=== PATIENT | female | born 1995 | race Caucasian/White ===

== ENCOUNTER 2019-02-12 15:26 | Emergency (ER) | payer MEDICAID, SELFPAY ==
[2019-02-12 15:26] VITALS: BP 147/89; PULSE 104; RESP 18; TEMP 36.6; O2SAT 98; BMI 25.0
--- NOTE | 2019-02-12 15:47 | RAD_ITS ---
STUDY: X-RAY CHEST REASON FOR EXAM: Female, 24 years old. Chest pain TECHNIQUE: PA and lateral views of the chest. COMPARISON: None. FINDINGS: quality assurance monitor chassis leads are present. The lungs are clear and expanded. There is no demonstrated pleural abnormality. Normal size heart. Normal mediastinum and jered. Normal visualized pulmonary arteries. Normal visualized aortic arch and descending thoracic aorta. Normal visualized thoracic spine. Normal visualized ribs, clavicles, and shoulders. There is no demonstrated abnormality of the visualized soft tissue structures of the upper abdomen. RAD/Chest PA and Lateral IMPRESSION: Normal x-ray examination of the chest. Electronically Signed: Tony Jasso MD at 17:03 EDT , Service support ,
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
[2019-02-12 16:10] VITALS: BP 119/66; PULSE 75; RESP 19; O2SAT 98
[2019-02-12 16:36] LABS: Absolute Lymphocyte Count 1.61 X10^3/uL (0.83-4.51); Absolute Neutrophil Count 7.1 X10^3/uL (2.0-7.7); Basophil# 0.04 X10^3/uL; Basophil% 0.4 % (0-1); Eosinophil# 0.15 X10^3/uL; Eosinophils% 1.5 % (0-5); Hematocrit 42.4 % (37-47); Hemoglobin 14.5 g/dL (12.0-15.0); Lymphocyte # 1.61 X10^3/ul (4.0); Lymphocyte % 16.6 % (19-41); Mean Corp Hgb Conc 34.2 g/dL (32-36); Mean Corpuscular Hgb 30.4 pg (27.0-32.0); Mean Corpuscular Volume 88.9 fL (81-99); Mean Platelet Vol. 11.2 fl (6.2-12.0); Monocyte# 0.79 X10^3/uL; Monocyte% 8.2 % (0-10); NRBC Flagged by Analyzer 0 % (0-5); Neutrophil # 7.05 X10^3/uL (2.7-7.7); Neutrophil % 72.9 % (47-70); Platelet Count 276 K/mm3 (150-450); RBC Distribution Width CV 12.6 % (11.6-14.6); RBC Distribution Width SD 41.5 fl (35.1-43.9); Red Blood Count 4.77 M/mm3 (4.2-5.4); White Blood Count 9.7 K/mm3 (4.4-11.0)
[2019-02-12 16:49] LABS: Anion Gap 8 (5-15); BUN 6 mg/dL (7-18); BUN/Creat Ratio 7.9 RATIO (10-20); Chloride 108 mmol/L (98-107); Creatinine, Serum 0.76 mg/dL (0.55-1.02); EST Glomerular Filtration Rate 100 mL/min (>60); Est Glom Filt Rate - Afr Amer 121 mL/min (>60); Estimated Creatinine Clearance 103.59 ml/min; Glucose 95 mg/dL (74-106); Potassium 3.8 mmol/L (3.5-5.1); Sodium Level 142 mmol/L (136-145)
[2019-02-12 17:00] VITALS: BP 108/61; PULSE 64; RESP 16; O2SAT 98
[2019-02-12 17:21] LABS: Internal QC Validated? YES +Cl - CLEAR BKGD; Pregnancy, Serum, hCG Quali. NEGATIVE Negative
--- NOTE | 2019-02-12 17:59 | EKG12_ITS ---
Test Reason : CP Blood Pressure : / mmHG Vent. Rate : 076 BPM Atrial Rate : 076 BPM P-R Int : 132 ms QRS Dur : 078 ms QT Int : 358 ms P-R-T Axes : 017 048 018 degrees QTc Int : 402 ms Normal sinus rhythm Normal ECG Confirmed by SOHAIL PEREIRA, HANS ([id number]), slot editor KARAN COFFEY ([id number]) on 02/14/2019 10:50:55 AM Referred By: KELLY/CHRISTINE Confirmed By:HANS SAUCEDA MD
--- NOTE | 2019-02-12 18:09 | ED.DEP ---
ED Disposition - Plan for ED Patient: Disposition: Home or Assisted Living Instructions: CHEST PAIN, Uncertain Cause Referrals: Israel Huitron MD [STAFF PHYSICIAN] - 1 Week Additional Instructions: Your tests today were normal. Follow-up with a local physician.
[2019-02-12 18:23] VITALS: BP 111/62; PULSE 78; RESP 15; O2SAT 98
== END 2019-02-12 18:24 | disposition home or self-care (01) ==
PROVIDERS: Emergency Provider Emergency Medicine
DX: R07.9 Chest pain, unspecified (principal); R19.7 Diarrhea, unspecified; F17.210 Nicotine dependence, cigarettes, uncomplicated
CPT/HCPCS: 71046; 80048; 84703; 85025; 93005; 99284; A4216

== ENCOUNTER 2019-03-25 01:36 | Emergency (ER) | payer MEDICAID, SELFPAY ==
[2019-03-25 01:37] VITALS: BP 134/78; PULSE 101; RESP 16; TEMP 36.7; O2SAT 99; BMI 26.2
--- NOTE | 2019-03-25 01:49 | ED.VISSUMM ---
- ER Visit Summary Date of Service: 03/25/19 Chief Complaint: Earring stuck in ears. History of Present Illness: The patient is a 24 F who put new larger gauges in her ears tonight. She is unable to get them out. She is having pain. Denies any bleeding. They have been stuck in there for about 6 hours. Physical Examination: Bilateral ear exam reveals earring gauges stuck in the earlobes bilaterally. There is no erythema, drainage or bleeding. Test Results: None performed Emergency Department Course and Treatment: These gauges are made of rubber so I just cut them with some scissors and pulled and out with some forceps. There is no bleeding or drainage. Patient will use Neosporin on these areas at home. Treatment Plan: [] Disposition: Discharge Impression: Earring stuck in ears Ear ring removal This note was generated with [employer] dictation software. It may contain incorrect words, spelling, and punctuation that were not noted in review of the chart prior to signing ED Disposition - Plan for ED Patient: Referrals: Care Physician,No Primary [Primary Care Provider] -
--- NOTE | 2019-03-25 01:50 | ED.DEP ---
ED Disposition - Plan for ED Patient: Disposition: Home or Assisted Living Instructions: Foreign Object in the Ear or Nose Referrals: Care Physician,No Primary [Primary Care Provider] -
[2019-03-25 01:52] VITALS: PULSE 94; RESP 18; O2SAT 99
--- NOTE | 2019-03-25 01:53 | ED.RN ---
THIS NURSE REVIEWED D/C INSTRUCTIONS WITH PT. PT VERBALIZED UNDERSTANDING OF INSTRUCTIONS. PT DENIES FURTHER NEEDS OR QUESTIONS AT THIS TIME
== END 2019-03-25 01:53 | disposition home or self-care (01) ==
PROVIDERS: Emergency Provider Emergency Medicine
DX: T16.1XXA Foreign body in right ear, initial encounter (principal); T16.2XXA Foreign body in left ear, initial encounter; W45.8XXA Other foreign body or object entering through skin, initial encounter; Y93.9 Activity, unspecified; Y92.9 Unspecified place or not applicable; Y99.9 Unspecified external cause status; Z72.0 Tobacco use
CPT/HCPCS: 99282

== ENCOUNTER → 2019-04-20 18:11 | Emergency (ER) | payer SELFPAY ==
[2019-03-25 01:37] VITALS: BMI 26.2
[2019-04-20 18:12] VITALS: BP 161/82; PULSE 90; RESP 16; TEMP 36.2; O2SAT 100; BMI 25.7
--- NOTE | 2019-04-20 19:00 | ED.RN ---
CALLED FOR PT TWICE, NO ANSWER
--- NOTE | 2019-04-20 21:08 | ED.RN ---
PT CALLED SEVERAL TIMES, NO ANSWER. PT ASSUMED LW 1900.
== END ==
DX: R10.9 Unspecified abdominal pain (principal)

== ENCOUNTER 2019-05-02 23:03 | Emergency (ER) | payer SELFPAY ==
[2019-04-20 18:12] VITALS: BMI 25.7
[2019-05-02 23:04] VITALS: BP 138/76; PULSE 96; RESP 18; TEMP 36.5; O2SAT 100; BMI 27.8
--- NOTE | 2019-05-02 23:16 | RAD_ITS ---
STUDY: X-RAY - LEFT KNEE REASON FOR EXAM: Female, 24 years old. Pain TECHNIQUE: 4 view(s) of the knee. COMPARISON: None. FINDINGS: Normal visualized distal femur. Normal visualized proximal tibia and fibula. Normal proximal tibiofibular articulation. Normal medial femorotibial compartment. Normal lateral femorotibial compartment. Normal patellofemoral articulation. The soft tissue structures are unremarkable. RAD/Knee 4 or More Views IMPRESSION: Normal x-ray examination of the knee. Electronically Signed: Jeremy Butler DO at 23:46 EDT Tel [phone], Service support ,
--- NOTE | 2019-05-03 00:10 | ED.DCSUM_ITS ---
- ER Visit Summary Date of Service: 05/03/19 Chief Complaint: Left knee pain History of Present Illness: The patient is a 24 F presenting with left knee pain. Patient states this started 2 days ago. She does not recall a specific injury. She states at work she gets in and out of a truck frequently. She frequently jumps down. She does not recall a specific incident when it started to hurt. She has tried no medications at home. No other complaints. Physical Examination: Vitals are stable. Patient is afebrile. Alert no acute distress. HEENT exam is unremarkable. Neck is supple. Lungs are clear and equal bilaterally. Heart is regular rate and rhythm. Extremities left medial and lateral left knee tenderness. No significant effusion. Active full range of motion. Neurovascularly intact distally. No erythema or warmth. No calf tenderness. Skin is warm and dry. No focal neurologic deficit. Remainder of exam is unremarkable. Emergency Department Course and Treatment: Left knee x-ray shows no acute pro cess. Patient was given [place] x1. She is given a prescription for Naprosyn. Advised to follow-up with Dr. Adamson investor relations specialist for no doctor. Advised return to ED for worsening complaints. Disposition: Discharge home Impression: Left knee pain This note was generated with [employer] dictation software. It may contain incorrect words, spelling, and punctuation that were not noted in review of the chart prior to signing ED Disposition - Plan for ED Patient: Instructions: Knee Sprain Prescriptions: Naproxen [Naprosyn] 500 mg PO BID PRN #20 tab Prescription Printed Referrals: Davin Adamson MD [NON-STAFF] -
--- NOTE | 2019-05-03 00:13 | ED.DEP ---
ED Disposition - Plan for ED Patient: Instructions: Knee Sprain Prescriptions: Naproxen [Naprosyn] 500 mg PO BID PRN #20 tablet Referrals: Davin Adamson MD [NON-STAFF] -
[2019-05-03] MEDS: HYDROcodone Bitartrate/Apap 5/325 Tablet PO (00:20)
== END 2019-05-03 00:21 | disposition home or self-care (01) ==
LOC: ED 23:25
PROVIDERS: Emergency Provider Emergency Medicine
DX: M25.562 Pain in left knee (principal); Z72.0 Tobacco use
CPT/HCPCS: 73564; 99283

== ENCOUNTER 2019-05-13 15:02 | Emergency (ER) | payer SELFPAY ==
[2019-05-13 15:03] VITALS: BP 117/72; PULSE 113; RESP 16; TEMP 36.6; O2SAT 97; BMI 25.0
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
[2019-05-13 15:31] VITALS: RESP 15
[2019-05-13] MEDS: Acetaminophen 500 MG Tablet 1000 MG PO (15:31)
--- NOTE | 2019-05-13 15:31 | ED.DEP ---
ED Disposition - Plan for ED Patient: Disposition: Home or Assisted Living Instructions: CONTUSION, Hand Referrals: Israel Huitron MD [STAFF PHYSICIAN] - 1 Week if not improving Additional Instructions: Ice and elevate right hand to decrease pain and swelling. Tylenol and Motrin for pain. Follow-up if not improving in 1 week.
== END 2019-05-13 15:35 | disposition home or self-care (01) ==
LOC: ED 15:33
PROVIDERS: Emergency Provider Emergency Medicine
DX: S60.221A Contusion of right hand, initial encounter (principal); Y04.2XXA Assault by strike against or bumped into by another person, initial encounter; Y93.9 Activity, unspecified; Y92.9 Unspecified place or not applicable; Y99.9 Unspecified external cause status; Z72.0 Tobacco use
CPT/HCPCS: 73130; 99283

== ENCOUNTER 2019-07-18 23:23 | Emergency (ER) | payer MEDICAID, SELFPAY ==
[2019-07-18 23:24] VITALS: BP 153/69; PULSE 93; RESP 15; TEMP 36.9; O2SAT 99; BMI 26.6
--- NOTE | 2019-07-18 23:47 | ED.VIS.GEN ---
History of Present Illness Chief Complaint: Wound Check Informant: Patient Onset: Month(s) Context: Gradual Onset Narrative: Patient is a 24-year-old female who is presenting with a wound check to her right cheek. She had a cyst removed by plastic surgeon at [facility] in February. Ever since the stitch was removed from this procedure patient has had an open wound. Does not drain. Her friend thought maybe looked a little larger today. Patient is not followed up with the plastic surgeon because she does not have insurance. She does note the past few days it may be been a little bit more red and irritated. She denies any other complaints at this time. She is not sure if she had any injury. Past Medical History - Allergies and Home Meds Allergies/Adverse Reactions: Allergies No Known Allergies Allergy (Verified 07/18/19 23:23) Primary Care Physician: Care Physician,No Primary [Primary Care Provider] - Past Medical History: None Surgical History: - - Cyst removal?face Smoking Status: Never smoker Review of Systems General: Denies: Chills, Fever, Sweats Eyes: Denies: Visual changes - bilaterally, Diplopia ENT: Denies: Rhinorrhea, Sore throat Cardiovascular: Denies: Chest pain, Palpitations Respiratory: Denies: Dyspnea, Cough, Dyspnea on exertion Gastrointestinal: Denies: Abdominal pain, Nausea, Vomiting, Diarrhea, Melena, Hematochezia Genitourinary: Denies: Dysuria, Hematuria, Frequency Musculoskeletal: Denies: Back pain, Extremity Pain Skin: Reports: Wounds - Chronic Wound to the right cheek. Denies: Rash Neurological: Denies: Headache, Weakness, Numbness Physical Exam Vital Signs/Narrative: Vital Signs Temp Pulse Resp BP Pulse Ox 07/18/19 23:24 98.5 F 93 15 153/69 H 99 Inital Vital Signs reviewed: Yes General: Well nourished, Well developed, No Acute Distress Head: Normocephalic, Atraumatic Eyes: Perrl, EOMI ENT: Moist mucous membranes, No rhinorrhea Neck: Supple, Nontender Cardiovascular: Regular rate, Regular rhythm, No murmurs Respiratory: No distress, CTA bilaterally Abdomen: Soft, Nontender Back: Nontender, Normal Inspection Extremities: Nontender, No edema Skin: Normal color, No rash, - - Patient has 4 mm open chronic appearing wound on her left cheek. There is no surrounding erythema or associated drainage. No associated fluctuance or tenderness to palpation. Neurological: Alert, Oriented x3, Cranial nerves II-XII grossly intact, Normal Strength, Normal Sensation Psychological: Normal affect, Normal Mood Diagnostic/Tx/Re-eval - Medical Decision Making Patient has a chronic wound that she thinks might be worsening on her right cheek. She appears nontoxic and in no acute distress. Vital signs are significant only for mild hypertension. The wound does not appear infected. It looks to be a possible chronic wound/tract that formed after her cyst removal. Patient be started on mupirocin ointment. She is counseled that she needs to follow-up with her surgeon for this. ED Disposition - Plan for ED Patient: Disposition: Home or Assisted Living Diagnosis: Open wound of face Prescriptions: Mupirocin [Bactroban] 1 applic TOPICAL TID 10 Days #1 tube Prescription Printed Referrals: Care Physician,No Primary [Primary Care Provider] - Additional Instructions: Your wound does not appear obviously infected right now. You need to follow-up with your surgeon because it appears that you have a chronic tract that formed from your cyst removal
== END 2019-07-19 00:27 | disposition home or self-care (01) ==
LOC: ED 07-19 00:06
PROVIDERS: Emergency Provider Emergency Medicine
DX: S01.401A Unspecified open wound of right cheek and temporomandibular area, initial encounter (principal); X58.XXXA Exposure to other specified factors, initial encounter; Y93.9 Activity, unspecified; Y92.9 Unspecified place or not applicable; Y99.9 Unspecified external cause status; I10 Essential (primary) hypertension; Z98.890 Other specified postprocedural states
CPT/HCPCS: 99282

== ENCOUNTER 2021-03-17 09:49 | Emergency (ER) | payer MEDICAID, SELFPAY ==
[2021-03-17 09:50] VITALS: BP 121/69; PULSE 87; RESP 16; TEMP 36.3; O2SAT 98; BMI 29.2
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
== END 2021-03-17 11:06 | disposition home or self-care (01) ==
PROVIDERS: Emergency Provider Emergency Medicine
DX: M54.2 Cervicalgia (principal); V49.9XXA Car occupant (driver) (passenger) injured in unspecified traffic accident, initial encounter
CPT/HCPCS: 72050; 99282

== ENCOUNTER 2022-05-04 19:55 | Emergency (ER) | payer MEDICAID, SELFPAY ==
[2022-05-04 19:56] VITALS: BP 131/81; PULSE 102; RESP 16; TEMP 36.6; O2SAT 99; BMI 27.4
[2022-05-04 20:55] VITALS: RESP 18; O2SAT 100
--- NOTE | 2022-05-04 21:23 | EX.ED.VIS.UR ---
HPI HPI - URI History of Present Illness Chief Complaint: Sore Throat Informant: patient Onset/Context/Timing Onset: Today Context: Gradual Onset Timing: Continuous Quality: Sharp Location: Throat Worsened by: Swallowing Relieved by: - (Nothing) Associated Symptoms Associated Symptoms: Positive for Myalgias and Nonproductive cough; Negative for Nasal Congestion, Headache, Sinus Pressure, Nausea, Vomiting, Diarrhea, Shortness of Breath, Chest Pain, Hemoptysis or Productive Cough Narrative Narrative: Patient presents with a sore throat that began today. Patient states it is gradually getting worse. Patient states it is sharp. Patient states it is constant. Patient states it is worse with swallowing. Patient admits to some body aches. Patient admits to a mild cough but denies any sputum production. Patient denies any fevers or chills. Patient denies any nausea or vomiting. Patient states nothing makes her throat pain any better. Patient denies any sinus pressure, headache, or nasal congestion. Patient also states she was recently exposed to somebody with COVID-19. ROS ROS ED Constitutional Constitutional ED: Denies chills or fever(s) Eyes Eyes: Denies blurry vision or change in vision ENT ENT ED: Reports sore throat; Denies rhinorrhea Cardiovascular Cardiovascular: Denies chest pain or palpitations Respiratory/Chest Respiratory/Chest: Reports cough; Denies dyspnea Gastrointestinal Gastrointestinal: Denies nausea or vomiting Genitourinary Genitourinary ED: Denies dysuria or hematuria Musculoskeletal Musculoskeletal: Denies back pain or neck pain Integumentary Denies abscess or rash Neurologic Neurologic: Denies headache(s) or weakness Allergic/Immunologic Allergic/Immunologic ED: Denies mouth swelling or urticaria PFSH PFS Home Medications cyclobenzaprine 10 mg tablet 10 mg PO TID PRN Muscle Spasm #10 TABLETS 03/17/21 [Rx Last Taken Unknown] Allergy/AdvReac Type Severity Reaction Status Date / Time No Known Allergies Allergy Verified 05/04/22 19:58 Surgical History (Updated 05/04/22 @ 22:[address] Jose C Chatman DO) History of tonsillectomy and adenoidectomy Social History Smoking Status: Current every day smoker tobacco type: e-cigarettes EXAM Physical Exam Const Vital Signs: 05/04/22 19:56 Temperature 97.8 F Temperature Source Temporal Pulse Rate 102 H Respiratory Rate 16 Blood Pressure 131/81 H Blood Pressure Mean 97 Pulse Ox 99 Oxygen Delivery Method Room Air Positive well nourished and well developed General Appearance ED: well developed and NAD HEENT Reports moist mucous membranes Throat: posterior oropharynx abnormal Positive for cobblestoning and erythema; Negative for edema or exudates Neck no lymphadenopathy, supple, no meningeal signs and no JVD Resp normal respiratory effort and clear to auscultation bilaterally Cardio Rate: regular rate Rhythm: regular rhythm Neuro oriented x3, CN's II-XII intact bilaterally and no sensory deficits noted Sensorium / Orientation: alert Motor Exam: strength 5/5 throughout Psych mental status grossly normal MDM MDM MDM Narrative Medical decision making narrative: COVID-19 rapid antigen was obtained and was negative. Influenza A and influenza B antigens were obtained and were negative. Rapid strep was obtained and was negative. Patient was advised of her findings. Patient was advised that this is most likely a viral pharyngitis. Patient was instructed to follow-up with her primary care physician in 5 to 7 days. Patient was instructed to take Tylenol or ibuprofen as needed for any aches or fevers. Patient understood and was agreeable with the plan. All questions were answered. Discharge Plan Triage Chief Complaint: Sore Throat ED Provider: Jose C Chatman Dx/Rx/DC Orders Clinical Impression: Acute viral pharyngitis Instructions: ED Pharyngitis, Viral Prescriptions: No Action cyclobenzaprine 10 mg tablet 10 mg PO TID PRN (Reason: Muscle Spasm) Qty: 10 0RF Primary Care Provider: Care Physician,No Primary Referrals: Jaylan Pedraza MD [Med Staff - Studio Technician Video Operator] - 5-7 Days Care Physician,No Primary [Primary Care Provider] - Disposition Disposition: Home, Self Care
== END 2022-05-04 22:34 | disposition home or self-care (01) ==
PROVIDERS: Emergency Provider Emergency Medicine; Visit Provider Emergency Medicine
DX: J02.8 Acute pharyngitis due to other specified organisms (principal); B97.89 Other viral agents as the cause of diseases classified elsewhere; M79.10 Myalgia, unspecified site; F17.290 Nicotine dependence, other tobacco product, uncomplicated; Z20.822 Contact with and (suspected) exposure to COVID-19
CPT/HCPCS: 87428; 87880; 99282